=== PATIENT | male | born 1970 | race Caucasian/White ===

== ENCOUNTER 2019-07-06 13:07 | Inpatient (IN) | payer BC, OTHER ==
[~2019-07-06] VITALS: Ht 182.9 cm; Wt 104.3 kg
[2019-07-06 13:08] VITALS: BP 99/65
[2019-07-06] MEDS ORDERED: LEVO-T50 MCG PO (13:16)
[2019-07-06 13:30] LABS: ABSOLUTE NEUTROPHILS 7.8 thou/uL (1.4-8.2); BASOPHILS 0.8 % (0.0-2.0); EOSINOPHILS 1.8 % (0.0-3.0); HEMATOCRIT 48.7 % (42.0-52.0); HEMOGLOBIN 16.3 gm/dL (14.0-18.0); LYMPHOCYTES 29.4 % (24.0-44.0); MCH 31.6 pg (26.0-34.0); MCHC 33.4 g/dL (28.0-37.0); MCV 94.7 fL (80.0-100.0); MONOCYTES 6.3 % (1.0-8.0); PLATELET COUNT 281 thou/uL (150-400); POLYS 61.7 % (36.0-66.0); RBC 5.14 mil/uL (4.50-6.00); RDW 13.8 % (10.5-14.5); WBC 12.6 thou/uL (4.0-11.0)
[2019-07-06 13:45] LABS: APTT 32.7 Seconds (24.5-32.8); INR 1.1
[2019-07-06 13:46] LABS: ANION GAP 11 mmol/L (7-16); BUN 18 mg/dL (7-18); CALCIUM 9.2 mg/dL (8.5-10.1); CHLORIDE 103 mmol/L (98-107); CO2 23 mmol/L (21-32); CREATININE 1.1 mg/dL (0.7-1.3); GLUCOSE 117 mg/dL (74-106); POTASSIUM 4.1 mmol/L (3.5-5.1); SODIUM 137 mmol/L (136-145)
[2019-07-06 13:54] LABS: ALBUMIN 3.8 g/dL (3.4-5.0); SGOT 25 U/L (15-37); SGPT 26 U/L (30-65); TOTAL BILIRUBIN 0.6 mg/dL (<0.1-1.0); TOTAL PROTEIN 7.5 g/dL (6.4-8.2); TROPONIN-I <0.06 ng/mL (<0.06)
--- NOTE | 2019-07-06 16:40 | 2DMMODE ---
[facility] [address] [place] [address] 2 D/M-MODE ECHOCARDIOGRAM Name: PAULO MASSEY Room #: 170-9 ADM IN M.R.#: [id number] Admission: 07/06/19 Attend Phys: Jason Story Discharge: Date of : 70 Report #: [id number] THIS REPORT FOR: //name// APPROVED REPORT Study performed: 07/06/2019 14:43:29 EXAM: Comprehensive 2D, Doppler, and color-flow Echocardiogram Patient Location: ER Room #: 9 Status: routine BSA: 2.26 HR: 120 bpm BP: 117/81 mmHg Rhythm: Atrial Fibrillation Other Information Study Quality: Good Indications Atrial Fibrillation Chest Pain Hx: SVT, Afib, multiple ablations. Heart rate ranged from 105-130 during exam. 2D Dimensions RVDd: 35.76 mm IVSd: 12.00 (7-11mm) LVOT Diam: 24.07 (18-24mm) LVDd: 51.10 mm PWd: 12.35 (7-11mm) Ascending Ao: 39.76 (22-36mm) LVDs: 37.34 (25-40mm) Aortic Root: 42.58 mm Volumes Left Atrial Volume (Systole) Single Plane 4CH: 64.27 mL Single Plane 2CH: 87.00 mL LA ESV Index: 35.00 mL/m2 Aortic Valve AoV Peak Khoi.: 1.02 m/s AO Peak Gr.: 5.82 mmHg LVOT Max P.92 mmHg LVOT Max V: 0.67 m/s BRANDIE Vmax: 2.99 cm2 Mitral Valve [facility] [address] [address] 2 D/M-MODE ECHOCARDIOGRAM Name: PAULO MASSEY Room #: 170-9 ADM IN .R.#: [id number] Admission: 07/06/19 Attend Phys: Jason Story Discharge: Date of : 70 Report #: [id number] MV Decel. Time: 233.27 ms MV E Max Khoi.: 0.88 m/s Pulmonary Valve PV Peak Kohi.: 0.69 m/s PV Peak Gr.: 1.95 mmHg Tricuspid Valve TR Peak Khoi.: 2.21 m/s RAP Estimate: 10.00 mmHg TR Peak Gr.: 19.48 mmHg PA Pressure: 29.00 mmHg Left Ventricle The left ventricle is normal size. Mild concentric left ventricular hypertrophy. Left ventricular systolic function is low normal. LVEF is 50%. This study is not technically sufficient to allow evaluation of the LV diastolic function due to atrial fibrillation. Right Ventricle The right ventricle is normal size. The right ventricular systolic function is normal. Atria Left atrium is mildly dilated. The right atrium size is normal. Aortic Valve The aortic valve is normal in structure. Trace aortic regurgitation. There is no aortic valvular stenosis. Mitral Valve The mitral valve is normal in structure. Trace mitral regurgitation. Tricuspid Valve The tricuspid valve is normal in structure. Trace tricuspid regurgitation. Estimated PAP is 25-30mmHg. Pulmonic Valve The pulmonary valve is normal in structure. Trace pulmonic regurgitation. Great Vessels Aortic root is mildly dilated. The ascending aorta is mildly dilated. IVC is normal in size and collapses <50% with inspiration. [facility] [address] [place] [address] 2 D/M-MODE ECHOCARDIOGRAM Name: PAULO MASSEY Room #: 170-9 ADM IN .R.#: [id number] Admission: 07/06/19 Attend Phys: Jason Story Discharge: Date of : 70 Report #: [id number] Pericardium There is no pericardial effusion. <Conclusion> The left ventricle is normal size. Mild concentric left ventricular hypertrophy. Left ventricular systolic function is low normal. LVEF is 50%. This study is not technically sufficient to allow evaluation of the LV diastolic function due to atrial fibrillation. The right ventricle is normal size. Left atrium is mildly dilated. Trace aortic regurgitation. Trace mitral regurgitation. Trace tricuspid regurgitation. Estimated PAP is 25-30mmHg. Aortic root is mildly dilated. The ascending aorta is mildly dilated. There is no pericardial effusion. <ELECTRONICALLY SIGNED> By: Omari Medina MD, [facility] 07/06/19 1640 1640 1640 Omari Medina MD, FACC /INF
--- NOTE | 2019-07-06 17:41 | EKG ---
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1970 Requested By: Miguel Ángel Hernandez Order Number: [id number] MD: Hayden Mcmanus Measurements Intervals [place] Rate: 174 P: 0 [place]: 50 QRS: -19 QRSD: 84 T: 56 QT: 274 QTc: 466 Interpretive Statements Atrial fibrillation with a rapid ventricular response Borderline left axis deviation No previous ECG available for comparison Electronically Signed On 07-06-2019 17:41:27 CDT by Hayden Mcmanus [email or web address] <ELECTRONICALLY SIGNED> By: Hayden Mcmanus MD, [facility] 07/06/19 1741 1305 1305 Hayden Mcmanus MD, FACC /EPI
[2019-07-06 19:39] LABS: AMP/METHAMP Negative (Negative); BARBITURATES Negative (Negative); BENZODIAZEPINES Negative (Negative); COCAINE Negative (Negative); METHADONE Negative (Negative); OPIATES Negative (Negative); PCP Negative (Negative)
[2019-07-06 20:30] VITALS: BP 110/72
[2019-07-06 23:36] VITALS: BP 106/68
[2019-07-07 04:12] VITALS: BP 100/70
[2019-07-07 05:24] LABS: HEMATOCRIT 44.1 % (42.0-52.0); HEMOGLOBIN 14.7 gm/dL (14.0-18.0); MCH 31.9 pg (26.0-34.0); MCHC 33.3 g/dL (28.0-37.0); MCV 95.6 fL (80.0-100.0); RBC 4.61 mil/uL (4.50-6.00); WBC 9.3 thou/uL (4.0-11.0)
[2019-07-07 07:13] VITALS: BP 115/81
--- NOTE | 2019-07-07 09:08 | TEE ---
[facility] [address] [place] [address] TRANSESOPHAGEAL ECHOCARDIOGRAM Name: PAULO MASSEY Room #: 170-15 ADM IN M.R.#: [id number] Admission: 07/06/19 Attend Phys: Jason Story Discharge: Date of : 70 Report #: [id number] THIS REPORT FOR: //name// APPROVED REPORT Study performed: 07/07/2019 08:02:40 EXAM: Transesophageal Echocardiogram with Doppler and cardioversion Patient Location: [facility] Room #: ER Status: routine BSA: 2.26 HR: 110 bpm BP: 111/72 mmHg Rhythm: Atrial Fibrillation Other Information Study Quality: Adequate Indications Afib/Cardioversion. Hx: SVT, AFIB, multiple ablations. Echo Enhancing Agent Indication: Rule out Shunt Agent(s) / Amount(s) Used: Agitated Saline 6 cc Procedure After obtaining informed consent, patient underwent transesophageal echo in the [employer]. Type of Sedation : Conscious Sedation Sedation was achieved intravenously with: Versed (4) Fentanyl (50) Transesophageal probe was inserted and advanced into esophagus without difficulty by Hayden Mcmanus MD. The DIONNE was performed without complications. Synchronized Cardioversion attempted: Successful Synchronized Cardioversion acheived with 150 Joules after 1 attempt(s). Rhythm following Synchronized Cardioversion: Normal Sinus Rhythm Throughout the procedure, the blood pressure, pulse oximetry, cardiac rhythm, and rate were monitored. The patient tolerated the procedure without adverse effects. Recovery from conscious sedation was uneventful and vital signs were stable. [facility] [address] [place] [address] TRANSESOPHAGEAL ECHOCARDIOGRAM Name: PAULO MASSEY Room #: 170-15 ADM IN M.R.#: [id number] Admission: 07/06/19 Attend Phys: Jason Story Discharge: Date of : 70 Report #: [id number] Left Ventricle The left ventricle is normal size. Mild concentric left ventricular hypertrophy. Left ventricular systolic function is normal. LVEF is 50-55%. Right Ventricle The right ventricle is normal size. The right ventricular systolic function is normal. Atria Left atrium is mildly dilated. No thrombus is visualized in the left atrium or appendage. Right to left shunting on contrast bubble study consistent with patent foramen ovale. The right atrium size is normal. Aortic Valve The aortic valve is normal in structure. Trace aortic regurgitation. There is no aortic valvular stenosis. Mitral Valve The mitral valve is normal in structure. Mild mitral regurgitation. No evidence of mitral valve stenosis. Tricuspid Valve The tricuspid valve is normal in structure. Trace tricuspid regurgitation. Pulmonic Valve The pulmonary valve is normal in structure. Trace pulmonic regurgitation. Great Vessels Aortic root is mildly dilated. The ascending aorta is mildly dilated. IVC is normal in size and collapses >50% with inspiration. Pericardium There is no pericardial effusion. <Conclusion> Left ventricular systolic function is normal. LVEF is 50-55%. Left atrium is mildly dilated. No thrombus is visualized in the left atrium or appendage. Right to left shunting on contrast bubble study consistent with [facility] [address] [place] [address] TRANSESOPHAGEAL ECHOCARDIOGRAM Name: PAULO MASSEY Room #: 170-15 ADM IN M.R.#: [id number] Admission: 07/06/19 Attend Phys: Jason Story Discharge: Date of : 70 Report #: [id number] patent foramen ovale. The aortic valve is normal in structure. Trace aortic regurgitation, no stenosis. The mitral valve is normal in structure. Mild mitral regurgitation. There is no pericardial effusion. Successful cardioversion of atrial fibrillation to sinus rhythm following a single 150 J biphasic synchronous joules shock. <ELECTRONICALLY SIGNED> By: Hayden Mcmanus MD, FACC 07/07/19907 7 7 Hayden Mcmanus MD, FACC /INF
[2019-07-07] MEDS ORDERED: PRADAXA150 MG PO (10:24)
[2019-07-07] MEDS ORDERED: DIGOXIN125 MCG PO (10:24)
[2019-07-07 11:01] VITALS: BP 115/81
--- NOTE | 2019-07-08 08:31 | EKG ---
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 07/08/1931 6 6 Hayden Mcmanus MD, [facility] /EPI
== END 2019-07-07 11:01 | disposition home or self-care (01) | DRG 310 ==
LOC: ER 13:07 → EROBS 16:25
PROVIDERS: Emergency Medicine; Nurse Practitioner; ADMIT Internal Medicine
PROC: 5A2204Z Restoration of Cardiac Rhythm, Single (ICD-10-PCS; principal; 2019-07-06)
PROC: B24BZZ4 Ultrasonography of Heart with Aorta, Transesophageal (ICD-10-PCS; 2019-07-07)
DX: I48.0 Paroxysmal atrial fibrillation (principal); E89.0 Postprocedural hypothyroidism; F17.210 Nicotine dependence, cigarettes, uncomplicated; Z90.49 Acquired absence of other specified parts of digestive tract; Z79.82 Long term (current) use of aspirin; Z79.899 Other long term (current) drug therapy; Z90.5 Acquired absence of kidney; Z71.6 Tobacco abuse counseling